=== PATIENT | female | born 1975 | race African-American/Black ===

== ENCOUNTER 2021-02-07 07:00 | Emergency (ER) | payer OTHER ==
[~2021-02-07] VITALS: Ht 157.5 cm; Wt 47.2 kg
[2021-02-07 07:07] VITALS: BP 103/73
[2021-02-07] MEDS ORDERED: PREDNISONE 20 M20 MG PO (07:26)
== END 2021-02-07 07:52 | disposition home or self-care (01) ==
LOC: ER 07:00
DX: K13.0 Diseases of lips (principal)